=== PATIENT | male | born 1995 | race Caucasian/White ===

== ENCOUNTER 2019-10-24 06:44 | Outpatient (CLI) | payer OTHER, SELFPAY ==
[2019-10-24 17:05] LABS: SARS-CoV-2 RNA PCR Negative
== END 2019-10-24 06:45 | disposition home or self-care (01) ==
PROVIDERS: Visit Provider Internal Medicine Gastroenterology
DX: Z01.818 Encounter for other preprocedural examination (principal); Z11.59 Encounter for screening for other viral diseases
CPT/HCPCS: 87635; C9803; U0003

== ENCOUNTER 2019-10-27 01:19 | Day surgery (SDC) | payer OTHER, SELFPAY ==
[2019-10-22 10:00] VITALS: BMI 26.6
[2019-10-27 07:14] VITALS: BP 119/70; PULSE 57; RESP 14; TEMP 36.7; O2SAT 99
[2019-10-27] MEDS: LACTATED RINGERS 1,000 ML 150 ML IV CONT (07:17)
--- NOTE | 2019-10-27 07:21 | WPDANESEPPF ---
Anes - Initial Pre Proc Eval Procedure: Operation Date: 10/27/19 08:30 Proposed Procedures p Colonoscopy - Ruel Pollack MD Date/Time: 10/27/19 07:21 Surgeon: Ruel Pollack MD Pre Op Diagnosis: rectal bleeding, diarrhea, family hx colon ca Patient Data Age: 23 Gender: M Height: 5 ft 5 in Weight: 74.7 kg Last Vital Signs Temp 36.7 C 10/27/19 07:14 Pulse 57 L 10/27/19 07:14 Resp 14 10/27/19 07:14 BP 119/70 10/27/19 07:14 Pulse Ox 99 10/27/19 07:14 Allergies Allergy/AdvReac Type Severity Reaction Status Date / Time Sulfa (Sulfonamide Allergy Rash Verified 10/22/19 10:05 Antibiotics) Home Medications Medication Instructions Recorded Confirmed Type bupropion HCl 75 mg PO BID 10/22/19 10/22/19 History cetirizine [Zyrtec] 10 mg PO DAILY 10/22/19 10/22/19 History omeprazole 20 mg PO DAILY 10/22/19 10/22/19 History Patient hx anesthesia problems: none Family hx anesthesia problems: none PMFSH Past Medical History Medical History (Updated 10/27/19 @ 07:22 by Tyson Milian MD) ADHD Anxiety Asthma Social History Social History Gender identity (if verbalized by the patient): Male Anes - Eval Final PreProcedure Day of Procedure 10/27/19 07:21 Patient weight: overweight Heart: regular rate and rhythm Lungs: clear to auscultation Airway: Mallampati scale class II Neurological: alert and oriented Last oral intake: >/= 8 hours ASA classification: II Emergent: no Anesthetic plan: proceed Anesthesia type and monitoring: general GIVS and standard monitoring Informed Consent: The patient's anesthetic plan and its attendant risks and benefits were discussed with the patient/family/POA. Questions were solicited and answers provided to the satisfaction of the patient/family/POA.
--- NOTE | 2019-10-27 07:48 | P.CONGI_ITS ---
Assessment and Plan Assessment and plan (1) History of rectal bleeding: Code(s): Z87.19 - Personal history of other diseases of the digestive system Status: Acute (2) Diarrhea: Code(s): R19.7 - Diarrhea, unspecified Status: Acute (3) Family history of malignant neoplasm of colon in relative diagnosed when younger than 50 years of age: Code(s): Z80.0 - Family history of malignant neoplasm of digestive organs Status: Acute Assessment and Plan: Because of family history of colon cancer at a young age in conjunction with recent change in bowel habits and rectal bleeding colonoscopy will be performed fiber diet is suggested because of clinical context. Somewhat suspicious for Irritable bowel syndrome. GI Consult Note Consult date/time: 10/27/19 07:48 HPI: Christ Tovar is a 23 year old male Seen in evaluation at the request Dr. Sandra Davis. Patient reports 1 year history of intermittent diarrhea and abdominal cramping. He notes occasional bright red blood per rectum. In the past he was told he had hemorrhoids. Most recent episodes includes episodes of diarrhea 6 times a day. He describes pain in the low abdomen. He denies any fever. He is empirically tried omeprazole and feels this may help his symptoms. Family history is significant that his mother had colon cancer at age 34. A dditionally anti grandmother and grandfather had colon polyps. Review of Systems Review of Systems: All systems reviewed & are unremarkable except as noted in HPI and below PMFSH Past Medical History Medical History ADHD Anxiety Asthma Social History Social History Gender identity (if verbalized by the patient): Male Meds Home Medications and Allergies Home Medications Medication Instructions Recorded Confirmed Type bupropion HCl 75 mg PO BID 10/22/19 10/22/19 History cetirizine [Zyrtec] 10 mg PO DAILY 10/22/19 10/22/19 History omeprazole 20 mg PO DAILY 10/22/19 10/22/19 History Allergies Allergy/AdvReac Type Severity Reaction Status Date / Time Sulfa (Sulfonamide Allergy Rash Verified 10/22/19 10:05 Antibiotics) Vital Signs Vital Signs - 24 hr 10/27/19 07:14 Temperature 36.7 C Pulse Rate 57 L Respiratory Rate 14 Blood Pressure 119/70 Pulse Oximetry 99 Exam Narrative: Exam Narrative: Physical exam reveals patient to be alert. Vital signs are stable. HEENT exam unremarkable. Lungs are clear to auscultation and percussion. Heart is without murmur or extra sounds. Abdominal exam bowel sounds are present soft nontender with no hepatosplenomegaly. Digital external rectal exam unremarkable.
[2019-10-27 08:36] VITALS: BP 86/43; PULSE 65; RESP 20; O2SAT 99
[2019-10-27 08:46] VITALS: BP 90/50; PULSE 65; RESP 20; O2SAT 99
[2019-10-27 08:56] VITALS: BP 117/71; PULSE 64; RESP 16; O2SAT 100
== END 2019-10-27 09:21 | disposition home or self-care (01) ==
PROVIDERS: Visit Provider Internal Medicine Gastroenterology
PROC: 0DJD8ZZ Inspection of Lower Intestinal Tract, Via Natural or Artificial Opening Endoscopic (ICD-10-PCS; CPT 45378; principal; 2019-10-27 08:30)
DX: K62.5 Hemorrhage of anus and rectum (principal); R19.7 Diarrhea, unspecified; K64.8 Other hemorrhoids; Z80.0 Family history of malignant neoplasm of digestive organs
CPT/HCPCS: 45378; J2001; J2704; J7120

== ENCOUNTER 2020-02-05 07:42 | Observation (INO) | payer OTHER, SELFPAY ==
[2020-02-05] VITALS (14 sets, daily range): BP systolic 99–126; BP diastolic 42–78; PULSE 52–70; RESP 14–20; TEMP 36.1–37.1; O2SAT 97–100; BMI 24.7
--- NOTE | ~2020-02-05 | CT_ITS ---
EXAMINATION: CT abdomen pelvis w con EXAM DATE: 02/05/2020 09:12 INDICATION: Right lower quadrant pain. TECHNIQUE: Spiral CT of the abdomen and pelvis was performed following intravenous injection of 100 m L Omnipaque 350. Axial, coronal and sagittal images were reviewed. The dose-length product (DLP) fo r this examination was 297.46 mGy-cm. The exposure was tailored according to patient size (auto mA e xposure control), and iterative reconstruction (ASIR) was used as additional dose reduction technique . There is no prior study for comparison. FINDINGS: The liver, spleen, adrenal glands and pancreas are unremarkable. Gallbladder is unremarkab le. No biliary obstruction. Portal and splenic veins are patent. Kidneys enhance symmetrically. T here is no hydronephrosis. The prostate is unremarkable. The bladder is unremarkable. There is no retroperitoneal or pelvic lymphadenopathy. Appendix identified, indicated, is fluid-filled and dilated up to 1 cm. No adjacent inflammation,, ab scess or perforation. Findings suggestive of early acute appendicitis. The stomach and small bowel a re unremarkable. There is expected amount of colonic stool. No free intraperitoneal gas. The hea rt is normal in size. There are no pericardial or pleural effusions. The lung bases are unremarkabl e. The bones are unremarkable. IMPRESSION: Dilated fluid-filled appendix, appearance consistent with early acute appendicitis. I discussed this with Hernan Ann DO at 02/05/2020 09:17 CDT. 1. Reviewed, dictated and finalized at location A. IMPRESSION: Dilated fluid-filled appendix, appearance consistent with early acu te appendicitis. I discussed this with Hernan Ann DO at 02/05/2020 09:17 CDT. 1.
--- NOTE | 2020-02-05 07:59 | ED.ABDPAIN ---
HPI - Abdominal Pain General Chief Complaint: Abdominal Pain Stated Complaint: ABD PAIN X 12HOURS Time Seen by Provider: 02/05/20 07:47 Source: RN notes reviewed History of Present Illness HPI narrative: Patient presents emergency department from home for abdominal pain. Patient states symptoms began 12 hours ago. Pain was initially diffusely throughout the abdomen is now located in the bilateral lower abdomen described as sharp and stabbing. Associated with nausea vomiting and diarrhea. Patient denies having any fevers or chills. States he took no previous medication for the symptoms. He states that this time the pain is located equally in the bilateral lower quadrants nothing makes the pain better or worse Related Data Home Medications Medication Instructions Recorded Confirmed bupropion HCl 75 mg PO BID 10/22/19 10/22/19 cetirizine [Zyrtec] 10 mg PO DAILY 10/22/19 10/22/19 omeprazole 20 mg PO DAILY 10/22/19 10/22/19 Allergies Allergy/AdvReac Type Severity Reaction Status Date / Time Sulfa (Sulfonamide Allergy Rash Verified 10/22/19 10:05 Antibiotics) Review of Systems Review of Systems: Narrative: Gen.: Denies fevers or chills Eyes: Denies eye pain or visual change ENT: Denies congestion Respiratory: Denies shortness of breath or cough CV: Denies chest pain or palpitations GI: See HPI Musculoskeletal: Denies back pain or muscle pain Neuro: Denies numbness, tingling, weakness or focal weakness Skin: Denies rash Except as documented, all other systems reviewed and negative [facility] Past Medical History Medical History ADHD Anxiety Asthma Social History Social History (Updated 02/05/20 @ 07:59 by Hernan Ann DO) Smoking status: Never smoker Gender identity (if verbalized by the patient): Male Exam Narrative: Exam Narrative: APPEARANCE: No acute distress, nontoxic, resting in bed HEENT: Normocephalic, atraumatic, OMM RESPIRATORY: No respiratory distress, clear to auscultation bilaterally with no rhonchi wheezing or rales CARDIOVASCULAR: RRR s murmur ABDOMINAL: Soft, nondistended, tender palpation right lower quadrant and left lower quadrant, no rebound or guarding MUSCULOSKELETAl: Moves all extremities. No clubbing, cyanosis or edema. NEURO: Awake and alert. Following commands, speech normal, no focal deficits SKIN:: Warm, dry. Normal Color PSYCHIATRIC: Normal affect/mood Course Course Emergency Course: Discussed Dr. Joe presentation work-up. Agrees admission to his service with plan for OR later today Discussed with patient and family results of workup and diagnosis. Discussed need for admission. Patient and family understand and agree to current treatment plan Vital Signs Vital signs: Vital Signs Temperature 98.3 F 02/05/20 07:54 Pulse Rate 60 02/05/20 07:54 Respiratory Rate 18 02/05/20 07:54 Blood Pressure 125/65 02/05/20 07:54 Pulse Oximetry 100 02/05/20 07:54 Temperature 98.3 F 02/05/20 07:54 Pulse Rate 60 02/05/20 07:54 Respiratory Rate 18 02/05/20 07:54 Blood Pressure 125/65 02/05/20 07:54 Pulse Oximetry 100 02/05/20 07:54 MDM - Abdominal Pain Lab Data Result diagrams: 02/05/20 07:58 02/05/20 07:58 Labs: Lab Results 02/05/20 02/05/20 02/05/20 Range/Units 07:58 07:58 09:01 WBC 9.3 (4.5-10.0) K/mm3 RBC 4.94 (4.6-6.20) M/mm3 Hgb 15.5 (14.0-18.0) g/dL Hct 45.4 (42.0-52.0) % MCV 91.9 (80-100) fl MCH 31.4 (26-34) pg MCHC 34.1 (32-36) g/dl RDW 12.3 (11.5-14.5) % Plt Count 183 (150-375) k/mm3 MPV 10.3 (7.4-10.4) fl Immature Gran % (Auto) 0.2 (0-0.5) % Neut % (Auto) 71.7 (45.5-73.1) % Lymph % (Auto) 15.8 L (18.3-44.2) % [place] % (Auto) 11.1 H (2.6-8.5) % Eos % (Auto) 1.0 (0-4.4) % Baso % (Auto) 0.2 (0.2-1.2) % Lymph # (Auto) 1.46 (0.9-3.2) K/mm3 [place] # (Auto
[2020-02-05] MEDS: ONDANSETRON INJ 4 MG/2 ML VIAL IV PUSH ×2 (08:03→14:19)
[2020-02-05] MEDS: KETOROLAC 30 MG/ML VIAL (*BKC) IV PUSH (08:03)
[2020-02-05] MEDS: SODIUM CHLORIDE 0.9% IV 1,000 ML 999 ML IV CONT (08:03)
[2020-02-05 08:04] LABS: Basophils Percent Auto 0.2 % (0.2-1.2); Eosinophils Absolute Auto 0.1 K/mm3 (0-0.3); Hematocrit 45.4 % (42.0-52.0); Hemoglobin 15.5 g/dL (14.0-18.0); Immature Granulocyte Absolute 0.02 K/mm3 (0.00-0.031); Immature Granulocyte Percent A 0.2 % (0-0.5); Lymphocytes Absolute Auto 1.46 K/mm3 (0.9-3.2); Lymphocytes Percent Auto 15.8 % (18.3-44.2); Mean Corpuscular HGB Conc 34.1 g/dl (32-36); Mean Corpuscular Hemoglobin 31.4 pg (26-34); Mean Corpuscular Volume 91.9 fl (80-100); Mean Platelet Volume 10.3 fl (7.4-10.4); Monocytes Percent Auto 11.1 % (2.6-8.5); Neutrophils Absolute Auto 6.6 K/mm3 (1.3-6.7); Neutrophils Percent Auto 71.7 % (45.5-73.1); Platelet Count Result 183 k/mm3 (150-375); Red Blood Count 4.94 M/mm3 (4.6-6.20); Red Cell Distribution Width 12.3 % (11.5-14.5); White Blood Count 9.3 K/mm3 (4.5-10.0)
[2020-02-05 08:18] LABS: Alanine Aminotransferase 18 U/L (4-50); Albumin Level 4.4 g/dL (3.5-5.1); Alkaline Phosphatase 40 U/L (38-126); Anion Gap 9 mmol/L (8-16); Aspartate Amino Transferase 24 U/L (17-59); Blood Urea Nitrogen 19 mg/dL (9-20); Calcium 9.8 mg/dL (8.4-10.2); Carbon Dioxide 30 mmol/L (22-30); Chloride 98 mmol/L (98-107); Estimated Glomerular Filt Rate > 60; Glucose 93 mg/dL (75-110); Lipase 22 U/L (23-300); Potassium 3.6 mmol/L (3.4-5.0); Sodium 137 mmol/L (137-145)
[2020-02-05 09:08] LABS: Add Urine Microscopic? YES; Appearance Urine Clear (Clear); Bacteria Urine Trace /hpf; Bilirubin Urine Negative (Negative); Blood Urine Negative (Negative); Color Urine Yellow (Yellow); Glucose Urine UA Negative (Negative); Ketones Urine Trace mg/dL (Negative); Leukocyte Esterase Ur Negative LEU/UL (Negative); Mucus Urine Rare /lpf; Nitrate Urine Negative (Negative); Protein Urine Negative (Negative); RBC Urine 0-2 /hpf (0-2); Specific Grav Ur 1.014 (1.001-1.035); Urobilinogen Urine Negative mg/dL (<2.0); WBC Urine 0-3 /hpf
--- NOTE | 2020-02-05 10:19 | ADMGEN ---
This patient, Christ Tovar, was admitted to Medical Room 261-01. Patient/family oriented to hospital policies and general routines including ID bracelet, bed and alarms, visiting hours, pain management, procedures, bathroom and other care routines, personal items, smoking policy, room service/diet, and visiting hours. Valuables list has been completed. Information on how to activate the Rapid Response Team has been discussed. Patient/Family are encouraged to report perceived risks to care and to ask questions if they do not understand what they are told or what they should do.
--- NOTE | 2020-02-05 11:02 | PM.IMHP ---
H&P: HPI History of Present Illness Date/Time: 02/05/20 11:02 Chief complaint: Appendicitis Narrative: Christ Tovar is a 24 year old male that presented to ED c/o severe lower abd pain. Pt reports pain was initially more diffuse and milder but now more localized in lower abd and constant. Pt reports assoc anorexia, N/V, diarrhea. Pt denies previous episodes. Review of Systems Constitutional: Constitutional: Denies anorexia, Denies chills, Denies fatigue, Denies headache(s), Denies lethargy, Denies malaise, Denies poor appetite, Denies weakness, Denies weight gain and Denies weight loss Eyes: Eyes: Denies change in vision ENT: Denies headache(s), Denies hearing loss and Denies sore throat Cardiovascular: Cardiovascular: Denies chest pain, Denies palpitations and Denies dyspnea Respiratory: Respiratory: Denies cough and Denies dyspnea Gastrointestinal: Gastrointestinal: Reports abdominal pain, Denies change in stool character, Denies constipation, Reports diarrhea, Reports nausea and Reports vomiting Genitourinary: Genitourinary: Denies dysuria, Denies urinary frequency and Denies urinary urgency Musculoskeletal: Musculoskeletal: Reports no additional musculoskeletal complaints Integumentary/Breasts: Skin/Breast: Denies pruritus, Denies lesions and Denies wounds Neurologic: Denies confusion and Denies headache(s) Psychiatric: Psychiatric: Reports no additional psychiatric complaints and Denies confusion Endocrine: Endocrine: Reports no additional endocrine complaints, Denies fatigue and Denies palpitations Hematologic/Lymphatic: Hematologic/Lymphatic: Reports no additional hematologic/lymphatic complaints Allergic/Immunologic: Allergic/Immunologic: Reports no additional allergic/immunologic complaints [facility] Past Medical History Medical History ADHD Anxiety Asthma Family History Family History Mother Colon cancer Diabetes mellitus Acute ITP Father Acute myocardial infarction Other Diabetes mellitus Renal cancer Grandparent Acute myocardial infarction Grandparent Acute myocardial infarction Social History Social History Smoking status: Never smoker Second hand tobacco smoke exposure: No Alcohol intake: current Drinks per week: 4 Substance use: never Substance use type: does not use Gender identity (if verbalized by the patient): Male Spiritual care concerns: No Meds Home Medications and Allergies Home Medications Medication Instructions Recorded Confirmed Type bupropion HCl 75 mg PO BID 10/22/19 02/05/20 History cetirizine [Zyrtec] 10 mg PO DAILY 10/22/19 02/05/20 History Allergies Allergy/AdvReac Type Severity Reaction Status Date / Time Sulfa (Sulfonamide Allergy Rash Verified 02/05/20 10:27 Antibiotics) Vital Signs Vital Signs - 24 hr 02/05/20 07:54 02/05/20 09:53 02/05/20 10:20 Temperature 36.8 C 36.8 C Pulse Rate 60 52 L 52 L Respiratory Rate 18 18 17 Blood Pressure 125/65 119/56 L 118/51 L Pulse Oximetry 100 100 100 Exam Const: General: cooperative, healthy appearing, no acute distress and well developed; No confusion Orientation/consciousness: patient oriented x3 and No confusion HENMT: Head: normal to inspection, normocephalic and atraumatic Mouth: Yes Normal oral and palatal mucosa present and Yes moist mucous membranes Teeth and gingiva: dentition normal Eyes: Conjunctivae: conjunctivae normal Pupils: Equal, round and reactive pupils present EOM: EOMs intact bilaterally Neck: Neck: normal visual inspection, full ROM, no lymphadenopathy, trachea midline and supple Lymphatic: no lymphadenopathy noted Chest: Chest palpation & inspection: normal inspection of the chest Resp: Effort & Inspection: normal respiratory effort Auscultation: clear to auscultation bilater
[2020-02-05] MEDS: SODIUM CHLORIDE 0.9% IV 1,000 ML 125 ML IV CONT (11:12)
[2020-02-05] MEDS: buPROPion HCL 75 MG TABLET PO (11:33)
--- NOTE | 2020-02-05 12:00 | PC.NURSE ---
To OR via stretcher with OR staff.
[2020-02-05] MEDS: LACTATED RINGERS 1,000 ML 30 ML IV CONT ×2 (12:33→13:50)
--- NOTE | 2020-02-05 12:42 | WPDANESEPPF ---
Anes - Initial Pre Proc Eval Procedure: Operation Date: 02/05/20 13:00 Proposed Procedures p Laparoscopic Appendectomy - Leticia Joe MD Date/Time: 02/05/20 12:42 Surgeon: Leticia Joe MD Pre Op Diagnosis: Appendicitis Patient Data Age: 24 Gender: M Height: 5 ft 5 in Weight: 67.4 kg Last Vital Signs Temp 37.1 C 02/05/20 12:09 Pulse 58 L 02/05/20 12:09 Resp 20 02/05/20 12:09 BP 121/47 L 02/05/20 12:09 Pulse Ox 100 02/05/20 12:09 Allergies Allergy/AdvReac Type Severity Reaction Status Date / Time Sulfa (Sulfonamide Allergy Rash Verified 02/05/20 10:27 Antibiotics) Home Medications Medication Instructions Recorded Confirmed Type bupropion HCl 75 mg PO BID 10/22/19 02/05/20 History cetirizine [Zyrtec] 10 mg PO DAILY 10/22/19 02/05/20 History Laboratory Tests 02/05/20 02/05/20 02/05/20 07:58 07:58 09:01 WBC 9.3 K/mm3 K/mm3 (4.5-10.0) RBC 4.94 M/mm3 M/mm3 (4.6-6.20) Hgb 15.5 g/dL g/dL (14.0-18.0) Hct 45.4 % % (42.0-52.0) MCV 91.9 fl fl (80-100) MCH 31.4 pg pg (26-34) MCHC 34.1 g/dl g/dl (32-36) RDW 12.3 % % (11.5-14.5) Plt Count 183 k/mm3 k/mm3 (150-375) MPV 10.3 fl fl (7.4-10.4) Immature Gran % (Auto) 0.2 % % (0-0.5) Neut % (Auto) 71.7 % % (45.5-73.1) Lymph % (Auto) 15.8 % L % (18.3-44.2) [place] % (Auto) 11.1 % H % (2.6-8.5) Eos % (Auto) 1.0 % % (0-4.4) Baso % (Auto) 0.2 % % (0.2-1.2) Lymph # (Auto) 1.46 K/mm3 K/mm3 (0.9-3.2) [place] # (Auto) 1.0 K/mm3 H K/mm3 (0.1-0.6) Eos # (Auto) 0.1 K/mm3 K/mm3 (0-0.3) Baso # (Auto) 0.0 K/mm3 K/mm3 (0.0-0.1) Abs Immat Gran (auto) 0.02 K/mm3 K/mm3 (0.00-0.031) Absolute Neuts (auto) 6.6 K/mm3 K/mm3 (1.3-6.7) Absolute Nucleated RBC 0.0 K/mm3 K/mm3 (0.0-0.012) Nucleated RBC % 0.0 % % (0.0-0.2) Sodium 137 mmol/L mmol/L (137-145) Potassium 3.6 mmol/L mmol/L (3.4-5.0) Chloride 98 mmol/L mmol/L (98-107) Carbon Dioxide 30 mmol/L mmol/L (22-30) Anion Gap 9 mmol/L mmol/L (8-16) BUN 19 mg/dL mg/dL (9-20) Creatinine 1.10 mg/dL mg/dL (0.7-1.3) Estim Creat Clear Calc Not Reportable Estimated GFR > 60 (59 - ) Glucose 93 mg/dL mg/dL (75-110) Calcium 9.8 mg/dL mg/dL (8.4-10.2) Total Bilirubin 1.0 mg/dL mg/dL (0.2-1.3) AST 24 U/L U/L (17-59) ALT 18 U/L U/L (4-50) Alkaline Phosphatase 40 U/L U/L (38-126) Total Protein 7.0 g/dL g/dL (6.3-8.2) Albumin 4.4 g/dL g/dL (3.5-5.1) Lipase 22 U/L L U/L (23-300) Urine Color Yellow (Yellow) Urine Appearance Clear (Clear) Urine pH 6.0 (5.0-9.0) Ur Specific [place] 1.014 (1.001-1.035) Urine Protein Negative mg/dL mg/dL (Negative) Urine Glucose (UA) Negative mg/dL mg/dL (Negative) Urine Ketones Trace mg/dL mg/dL (Negative) Ur Blood (Man) Negative (Negative) Urine Nitrate Negative (Negative) Urine Bilirubin Negative (Negative) Urine Urobilinogen Negative mg/dL mg/dL (<2.0) Leukocyte Esterase Rfl Negative LIZZETH/UL LIZZETH/UL (Negative) Urine RBC 0-2 /hpf /hpf (0-2) Urine WBC 0-3 /hpf /hpf Urine Bacteria Trace /hpf /hpf Urine Mucus Rare /lpf /lpf Patient hx anesthesia problems: none Family hx anesthesia problems: none PMFSH Past Medical History Medical History ADHD Anxiety Asthma Depression Surgical History Surgical History (Reviewed 02/05/20 @ 12:42 by Opal Melara
[2020-02-05] MEDS: BUPIVACAINE/EPINEPHRINE 0.5% 30 ML VIAL INFILTRATE (13:33)
--- NOTE | 2020-02-05 13:40 | PM.PROC ---
Procedure Note - Detailed Date of procedure: 02/05/20 Pre-op diagnosis: Appendicitis Post-op diagnosis: same Procedure performed: Laparoscopic appendectomy Description of procedure: The patient was brought into the operating room placed in the supine position. After adequate induction of general anesthesia, the patient was prepped and draped in normal sterile fashion. A time-out was then done to verify the patient's identity as well as the procedure being performed. I began by making a 5 mm incision in the infraumbilical region. A 5 mm Optiview trocar within used to gain access into the peritoneal cavity. Once into the peritoneal cavity, CO2 gas was insufflated. After adequate pneumoperitoneum was achieved, the laparoscope was placed into the 5 mm trocar. Under direct visualization, I went ahead and placed a further 5 mm suprapubic port as well as a 12 mm port in the left lower abdomen. At this point, I was able to visualize cecum. The cecum was retracted both cephalad and medial, and this allowed us to expose the appendix. The appendix was noted to be very dilated, injected, and inflamed. There was no obvious perforation of the appendix. I then grasped the appendix near the tip of the appendix and retracted both anterior and lateral. This allowed exposure of the base of the appendix with the cecum. I then created a window with the Zuleyma dissector between the appendix and the mesoappendix at the base of the appendix. Once this was achieved, a vascular staple load on the Endo-JOSE was placed through the 12 mm port site and subsequently transected the mesoappendix. I then reloaded the Endo-JOSE with a blue staple load and transected the base of the appendix with the cecum. Once the appendiceal specimen was completely detached, a Endo pouch was placed through the 12 mm port site. The appendix was placed into the Endo pouch and removed through the 12 mm port site. The appendix will now be sent to pathology for further review. I then visualized the right lower quadrant, both staple lines were noted to be intact and hemostatic. No other pathology was noted in the right lower quadrant or pelvis. I then moved the laparoscope to the 5 mm suprapubic port. I then visualized our port of entry at the 5 mm infraumbilical site. No iatrogenic injury or other pathology was seen in the upper abdomen. I then desufflated the abdomen and all ports were removed. The fascia of the 12 mm port site was closed with an 0 Vicryl figure of 8 suture. All port sites were then closed with 4 O Monocryl subcuticular suture. The patient tolerated the procedure well and was extubated in the operating room postoperatively. The patient will be transferred to the recovery room in stable condition. Anesthesia: GETA Surgeon: Leticia Joe MD Estimated blood loss (mL): 10 Drains: No Packing: No Pathology: yes Complications: No immediate complications Condition: stable Disposition: PACU Findings: Acute uncomplicated appendicitis
--- NOTE | 2020-02-05 13:49 | PM.DS ---
DS: Admitting Diagnosis Admitting Diagnosis Admitting Diagnosis: Appendicitis DS: Discharge Diagnosis Discharge Diagnosis (1) Acute appendicitis: Code(s): K35.80 - Unspecified acute appendicitis Status: Acute Assessment and Plan: s/p lap appy, doing well, local wound care, f/u 2 wks DS: Summary Hospital Course Reason for hospitalization: acute appendicitis Hospital Course: Pt presented to ED c/o 1 d h/o lower abd pain, R>L. Pt c assoc N/V, diarrhea. Pt had workup including imaging c/w acute appendicitis. Pt admitted, made NPO, and started on IV abx. Pt seen and decision to proceed c emergent appendectomy. Pt taken to OR and appendectomy performed, please see op note for details. Postop, pt did well and was venita diet and pain controlled c po analgesia. Pt to be sent home c po analgesia and stool softeners. Pt to f/u in 2 wks. Status at Discharge Functional status at discharge: independent ambulation Overall status at discharge: patient is progressing back to baseline Time Spent with Patient Time attestation: Total time spent providing and/or coordinating discharge services: Time spent: Less than 30 minutes DS: Data Data Completed and Pending Pending studies at discharge: Pending at discharge 02/05/20 13:29 Surgical [PTH] Routine Labs on day of discharge: Labs from last 24 hours 02/05/20 02/05/20 02/05/20 09:01 07:58 07:58 WBC 9.3 RBC 4.94 Hgb 15.5 Hct 45.4 MCV 91.9 MCH 31.4 MCHC 34.1 RDW 12.3 Plt Count 183 MPV 10.3 Immature Gran % (Auto) 0.2 Neut % (Auto) 71.7 Lymph % (Auto) 15.8 L [place] % (Auto) 11.1 H Eos % (Auto) 1.0 Baso % (Auto) 0.2 Lymph # (Auto) 1.46 [place] # (Auto) 1.0 H Eos # (Auto) 0.1 Baso # (Auto) 0.0 Abs Immat Gran (auto) 0.02 Absolute Neuts (auto) 6.6 Absolute Nucleated RBC 0.0 Nucleated RBC % 0.0 Sodium 137 Potassium 3.6 Chloride 98 Carbon Dioxide 30 Anion Gap 9 BUN 19 Creatinine 1.10 Estim Creat Clear Calc Not Reportable Estimated GFR > 60 Glucose 93 Calcium 9.8 Total Bilirubin 1.0 AST 24 ALT 18 Alkaline Phosphatase 40 Total Protein 7.0 Albumin 4.4 Lipase 22 L Urine Color Yellow Urine Appearance Clear Urine pH 6.0 Ur Specific [place] 1.014 Urine Protein Negative Urine Glucose (UA) Negative Urine Ketones Trace Ur Blood (Man) Negative Urine Nitrate Negative Urine Bilirubin Negative Urine Urobilinogen Negative Leukocyte Esterase Rfl Negative Urine RBC 0-2 Urine WBC 0-3 Urine Bacteria Trace Urine Mucus Rare Discharge Plan Discharge Attending physician on discharge: Leticia Joe Consulting providers: Tyree Vanessa Discharging Clinician: Leticia Joe Anticipated Discharge Date/Time: 02/05/20 16:00 Patient Disposition: Home, Self-Care Activity: may shower and as tolerated Diet: as tolerated Wound Care Instructions: follow printed instructions Discharge Instructions: DISCHARGE INSTRUCTION SHEET FOR HERNIA, GALLBLADDER AND APPENDIX SURGERIES DR. JOE PATIENT TO TAKE HOME 1. May shower in 24 hours, no soaking in bath x 2weeks. 2. Call office for: Wound increasingly painful or bleeding Vomiting Fever of greater than 101 degrees 3. If no bowel movement for three days, take 1 oz. (30 ml) Milk of Magnesia or MiraLax 17g 1 to 2 times daily. 4. No heavy lifting > 10-15 pounds x weeks for hernia repairs and 2 weeks for laparoscopic cholecystectomy or appendectomy. 5. No driving for 3 days or while taking narcotic pain medications. 6. Ice to surgical site for 48 hours (30 min on, then 30 min off). 7. Up walking 10-30 minutes three times per day. 8. Resume previous home medications. 9. Follow-up 10-14 days in office for wound check or as previously scheduled. (2
--- NOTE | 2020-02-05 14:45 | SUR.PHASEI ---
Called Dr. Joe's office to clarify meds all being stopped upon transfer except for the 4 new ones.
--- NOTE | 2020-02-05 15:33 | PC.NURSE ---
Received patient from the OR via stretcher with OR staff. Patient crying and stating he is in a lot of pain. States he has cramping pain in his abdomen and pain in his right chest and right shoulder. Mother at bedside. Discussed with patient and he is agreeable to trying a [place] as ordered. Patient denies nausea at this time. Gave water and [place] po
--- NOTE | 2020-02-05 15:33 | SUR.PHASEI ---
Patient was sleeping in recovery and appeared very comfortable. So RN processed the transfer and sent patient back to room. While transferring the patient back to room, patient started crying in the elevator. RN tried to calm patient and reassure him everything was fine and we would get him a pain pill upstairs. RN told patient to try and relax to help with the pain. When arriving to patient's room, mother started to get very angry and wanted someone to contact the doctor. This RN came back to recovery and contacted Dr. Joe's office to notify him of the situation. RN was also made aware from tech that patient was very anxious in pre-op and started crying there as well.
--- NOTE | 2020-02-05 16:26 | PC.NURSE ---
Patient resting comfortably. States pain in right chest and shoulder is gone. C/O some abdominal cramping but states it may be his IBS. Patient wants to rest for awhile longer and will then try to eat something. Mother remains at bedside.
== END 2020-02-05 19:28 | disposition home or self-care (01) ==
LOC: ANHED 09:50 → ANH2MED 10:05
PROVIDERS: Admitting Provider Surgery; Emergency Provider Emergency Medicine; Visit Provider Surgery
PROC: 0DTJ4ZZ Resection of Appendix, Percutaneous Endoscopic Approach (ICD-10-PCS; CPT 44970; principal; 2020-02-05 13:00)
DX: K35.80 Unspecified acute appendicitis (principal)
CPT/HCPCS: 44970; 36415; 74177; 80053; 81001; 83690; 85025; 88304; 96361; 96365; 96375; 99285; A9270; G0378; J0330; J1885; J2250; J2405; J2543; J2704; J2710; J3010; J7030; J7120; Q9967

== ENCOUNTER 2020-03-08 13:40 | Emergency (ER) | payer OTHER, SELFPAY ==
--- NOTE | ~2020-03-08 | XR_ITS ---
EXAMINATION: XR hand LT min 3V DATE: 03/08/2020 14:19 INDICATION: Left hand injury and pain. TECHNIQUE: 3 views of left hand were obtained. COMPARISON: None. FINDINGS: Bone alignment is normal. No fracture. There is mild osteoarthritis of third and fourth pro ximal interphalangeal joints. IMPRESSION: 1. No fracture. Reviewed, dictated and finalized at location A. IMPRESSION: 1. No fracture.
--- NOTE | ~2020-03-08 | XR_ITS ---
EXAMINATION: XR knee LT min 4V DATE: 03/08/2020 14:19 INDICATION: Left knee pain. Injury. TECHNIQUE: 4 views of left knee were obtained. COMPARISON: None. FINDINGS: Bone alignment is normal. No fracture. There is mild osteoarthritis of patellofemoral argenis rtment. No knee joint effusion. IMPRESSION: 1. Mild left knee osteoarthritis. Reviewed, dictated and finalized at location A.
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
[2020-03-08 13:52] VITALS: BP 114/53; PULSE 86; RESP 15; TEMP 36.7; O2SAT 100
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
[2020-03-08] MEDS: ACETAMINOPHEN 500 MG TABLET 1000 MG PO (19:34)
[2020-03-08 19:35] VITALS: BP 135/77; PULSE 85; RESP 16; TEMP 37; O2SAT 99
[2020-03-08 20:05] LABS: Basophils Percent Auto 0.3 % (0.2-1.2); Eosinophils Absolute Auto 0.1 K/mm3 (0-0.3); Eosinophils Percent Auto 0.5 % (0-4.4); Hematocrit 42.7 % (42.0-52.0); Hemoglobin 14.9 g/dL (14.0-18.0); Immature Granulocyte Absolute 0.03 K/mm3 (0.00-0.031); Immature Granulocyte Percent A 0.2 % (0-0.5); Lymphocytes Absolute Auto 2.14 K/mm3 (0.9-3.2); Mean Corpuscular HGB Conc 34.9 g/dl (32-36); Mean Corpuscular Hemoglobin 31.8 pg (26-34); Mean Corpuscular Volume 91.2 fl (80-100); Mean Platelet Volume 10.3 fl (7.4-10.4); Monocytes Absolute Auto 1.2 K/mm3 (0.1-0.6); Monocytes Percent Auto 9.3 % (2.6-8.5); Neutrophils Absolute Auto 9.8 K/mm3 (1.3-6.7); Neutrophils Percent Auto 73.7 % (45.5-73.1); Platelet Count Result 185 k/mm3 (150-375); Red Blood Count 4.68 M/mm3 (4.6-6.20); Red Cell Distribution Width 12.6 % (11.5-14.5); White Blood Count 13.4 K/mm3 (4.5-10.0)
[2020-03-08 20:14] LABS: Prothrombin Time 13.3 Seconds (11.1-14.7)
[2020-03-08 20:17] LABS: Alanine Aminotransferase 17 U/L (4-50); Albumin Level 4.1 g/dL (3.5-5.1); Alkaline Phosphatase 44 U/L (38-126); Anion Gap 7 mmol/L (8-16); Aspartate Amino Transferase 31 U/L (17-59); Bilirubin,Total 0.7 mg/dL (0.2-1.3); Blood Urea Nitrogen 13 mg/dL (9-20); Calcium 9.1 mg/dL (8.4-10.2); Carbon Dioxide 29 mmol/L (22-30); Chloride 101 mmol/L (98-107); Estimated CRCL calculation 97 ml/min; Estimated Glomerular Filt Rate > 60; Glucose 87 mg/dL (75-110); Lipase 27 U/L (23-300); Potassium 4.2 mmol/L (3.4-5.0); Sodium 137 mmol/L (137-145)
[2020-03-08 21:32] VITALS: BP 111/55; PULSE 59; RESP 16; O2SAT 99
[2020-03-08 22:21] VITALS: BP 118/69; PULSE 72; RESP 16; TEMP 36.6; O2SAT 100
== END 2020-03-08 22:28 | disposition short-term general hospital (02) ==
PROVIDERS: Physician Assistant; Emergency Provider Emergency Medicine
DX: S27.0XXA Traumatic pneumothorax, initial encounter (principal); S29.9XXA Unspecified injury of thorax, initial encounter; S39.92XA Unspecified injury of lower back, initial encounter; V13.4XXA Pedal cycle driver injured in collision with car, pick-up truck or van in traffic accident, initial encounter; Y93.55 Activity, bike riding; M47.816 Spondylosis without myelopathy or radiculopathy, lumbar region; M17.12 Unilateral primary osteoarthritis, left knee
CPT/HCPCS: 36415; 71046; 71110; 72128; 72131; 73130; 73564; 80053; 83690; 85025; 85610; 85730; 99291; A9270

== ENCOUNTER 2021-09-15 10:17 | Outpatient (CLI) | payer OTHER, SELFPAY ==
--- NOTE | 2021-09-15 | ECG_ITS ---
Measurements Intervals [place] Rate: 53 P: 69 HI: 145 QRS: 74 QRSD: 111 T: 55 QT: 403 QTc: 379 Interpretive Statements SINUS BRADYCARDIA INCOMPLETE RIGHT BUNDLE BRANCH BLOCK [90+ ms QRS DURATION, TERMINAL R IN V1/V2, 40+ ms S IN I/aVL/V4/V5/V6] NO PREVIOUS ECG AVAILABLE FOR COMPARISON Electronically Signed On 09-15-2021 18:56:13 CDT by Jeri Ramsey M.D.
== END 2021-09-15 10:18 | disposition home or self-care (01) ==
LOC: ANHCARD 10:21
PROVIDERS: PCP Nurse Practitioner Family; Visit Provider Nurse Practitioner Family
DX: R55 Syncope and collapse (principal); I45.10 Unspecified right bundle-branch block
CPT/HCPCS: 93005